=== PATIENT | female | born 1980 | race Caucasian/White ===

== ENCOUNTER → 2017-05-17 | Outpatient (CLI) | payer OTHER ==
[2017-05-17 17:35] LABS: LYMPH % 35.6 % (24.0-44.0); MEAN CORPUSCULAR HEMOGLOBIN 30.3 pg (27.0-33.0); MEAN CORPUSCULAR HGB CONC 33.2 g/dl (32.0-36.5); MEAN CORPUSCULAR VOLUME 91.2 fl (80.0-96.0); MONO % 7.3 % (0.0-5.0); PLATELET COUNT, AUTOMATED 257 10^3/uL (150-450); RED CELL DISTRIBUTION WIDTH 12.4 % (11.5-14.5); WHITE BLOOD COUNT 4.8 10^3/uL (4.0-10.0)
[2017-05-17 17:36] LABS: BASO % 0.4 % (0.0-1.0); EOS # 0.1 10^3/uL (0.0-0.50); EOS % 2.5 % (0.0-3.0); IMMATURE GRANULOCYTE % 0.2 % (0-0); LYMPH # 1.7 10^3/uL (1.5-4.5); MONO # 0.4 10^3/uL (0.0-0.8); NEUTROPHILS # 2.6 10^3/uL (1.8-7.7)
[2017-05-17 18:46] LABS: ALBUMIN 4.8 GM/DL (3.2-5.2); ALBUMIN/GLOBULIN RATIO 1.45 (1.00-1.93); ALKALINE PHOSPHATASE 59 U/L (45-117); ALT/SGPT 28 U/L (12-78); ANION GAP 12 MEQ/L (8-16); AST/SGOT 15 U/L (7-37); BILIRUBIN,TOTAL 0.5 MG/DL (0.2-1.0); BLOOD UREA NITROGEN 16 MG/DL (7-18); CALCIUM LEVEL 8.9 MG/DL (8.5-10.1); CARBON DIOXIDE LEVEL 22 MEQ/L (21-32); CHLORIDE LEVEL 106 MEQ/L (98-107); CREATININE FOR GFR 0.91 MG/DL (0.55-1.02); GLOMERULAR FILTRATION RATE > 60.0 (>60); GLUCOSE, FASTING 84 MG/DL (70-105); POTASSIUM SERUM 3.8 MEQ/L (3.5-5.1); SODIUM LEVEL 140 MEQ/L (136-145); TOTAL PROTEIN 8.1 GM/DL (6.4-8.2)
[2017-05-17 20:58] LABS: ERYTHROCYTE SEDIMENTATION RATE 4 mm/hr (0-20)
[2017-05-18 09:32] LABS: THYROID PEROXIDASE ANTIBODY < 28.0 U/ML (<60.0)
== END ==
LOC: M SMT 12:00
PROVIDERS: ATTEND Allergy & Immunology Allergy
DX: L50.1 Idiopathic urticaria (principal)

== ENCOUNTER 2019-05-22 06:00 | Day surgery (SDC) | payer BC ==
[~2019-05-22] VITALS: Ht 170.2 cm; Wt 78.4 kg
[~2019-05-22 06:00] MED LIST: LIDOCAINE 1% MDV 20ML VIAL SQ PRN; LR 1,000 ML IV ONE; MULTCAP PO; TOPI50TA9 PO; TRAZ-252 PO; VALA500T5 PO
[2019-05-22] MEDS ORDERED: SCOPOLAMINE 1MG TRANSDERMAL PATCH TOP ONE (07:15)
[2019-05-22] MEDS ORDERED: ACETAMINOPHEN 1000MG 100ML IV BTL (OFIRMEV) (J0131 PER 10MG) As Ordered ONE (07:55)
[2019-05-22] MEDS ORDERED: MIDAZOLAM INJ 2 MG/2 ML VIAL (J2250) As Ordered ONE (07:55)
[2019-05-22] MEDS ORDERED: KETOROLAC 60 MG/2 ML VIAL (J1885) As Ordered ONE (07:55)
[2019-05-22] MEDS ORDERED: PROPOFOL 200 MG/20 ML VIAL As Ordered ONE ×2 (07:55→07:56)
[2019-05-22] MEDS ORDERED: ONDANSETRON 4MG/2ML VIAL (J2405) As Ordered ONE (07:55)
[2019-05-22] MEDS ORDERED: METOCLOPRAMIDE INJ 10MG/2ML VIAL (J2765) As Ordered ONE (07:55)
[2019-05-22] MEDS ORDERED: ROCURONIUM BROMIDE 50 MG/5 ML VIAL As Ordered ONE (07:55)
[2019-05-22] MEDS ORDERED: LIDOCAINE 2% INJ 100 MG/5 ML SDV (FOR ANES.) As Ordered ONE (07:55)
[2019-05-22] MEDS ORDERED: SUGAMMADEX SODIUM 500 MG/5 ML VIAL (BRIDION) As Ordered ONE (07:55)
[2019-05-22] MEDS ORDERED: fentaNYL 100 MCG/2 ML INJECTION (J3010) As Ordered ONE ×2 (07:55→09:03)
[2019-05-22] MEDS ORDERED: dexameTHASONE 4 MG/ML 1ML VIAL (J1100) As Ordered ONE (07:55)
[2019-05-22] MEDS ORDERED: oxyCODONE 5MG TAB As Ordered ONE (09:03)
[2019-05-22] MEDS: fentaNYL 100 MCG/2 ML INJECTION (J3010) IV PRN ×2 (09:05→09:12)
[2019-05-22] MEDS: oxyCODONE 5MG TAB PO PRN ×2 (09:05→09:58)
[2019-05-22] MEDS ORDERED: LR 1,000 ML IV SCH ×2 (09:15→10:16)
[2019-05-22] MEDS ORDERED: MEPERIDINE INJ 25 MG/ML VIAL (J2175) IV PRN (09:15)
[2019-05-22] MEDS ORDERED: ONDANSETRON 4MG/2ML VIAL (J2405) IV PRN (09:15)
[2019-05-22] MEDS ORDERED: METOCLOPRAMIDE INJ 10MG/2ML VIAL (J2765) IV PRN (09:15)
[2019-05-22] MEDS ORDERED: NORCO, ANEXSIA 5/325MG TABLET (HYDROcodone/ACETAMINOPHEN) PO PRN (10:16)
[2019-05-22] MEDS ORDERED: IBUPROFEN 600 MG TAB PO PRN (10:16)
[2019-05-22 10:51] VITALS: BP 120/69
--- NOTE | 2019-05-26 10:41 | RO ---
DATE OF SURGERY: 05/22/2019 PREOPERATIVE DIAGNOSES AND INDICATION FOR SURGERY: Pain, bleeding, known fibroids, desire for permanent sterilization. POSTOPERATIVE DIAGNOSES: Pain, bleeding, known fibroids, desire for permanent sterilization. PROCEDURE: Laparoscopy with bilateral tubal ligation, fulguration, hysteroscopy with dilation and curettage (D and C) and ablation using the NovaSure. SURGEON: Swetha Fuller MD CELL TECHNICIAN: None. ANESTHESIA: General endotracheal anesthesia. BRIEF DESCRIPTION OF PROCEDURE AND FINDINGS: Julia was brought to the operating room, where sufficient general endotracheal anesthesia was induced. She was prepped and draped in position in the usual sterile fashion with a uterine manipulator placed. The uterus was sounded, and the length of the uterine cavity measured at 6 cm. We subsequently got a measurement of width of 4.6, but at this point we just had length, and we had the uterine manipulator placed and then turned our attention abdominally. A transverse semilunar incision was made below the umbilicus, avoiding the patient's tattoo. Sharp and blunt dissection were continued to the subcutaneous tissues to the level of the rectus fascia, which was grasped with Yina clamps, elevated to the wound, and transversely incised with the #15 blade scalpel. 0 Vicryl retention sutures were placed in the fascia. The peritoneum was entered bluntly under direct visualization in an open laparoscopic technique, and the Keith cannula then placed and secured in place with the 0 Vicryl retention sutures. CO2 insufflation was then begun. After adequate CO2 insufflation, the peritoneal cavity was visualized. There were shiny peritoneal surfaces throughout with no excrescences, ascites, nor exudate, and no significant adhesions. Trendelenburg was used to facilitate manipulation, as was the uterine manipulator. We were able to see normal ovaries and tubes and a uterus with a slightly distorted profile consistent with the patient's known history of fibroid. Then cauterized each tube in four separate locations using the bipolar cautery with the Kleppinger, and there was no evidence of injury to other organs or other abnormalities noted; and this portion of the procedure was ended with the CO2 allowed to escape the abdomen after, of course, photographs were taken to document this progress. After the CO2 had been allowed to escape the abdomen and the trocar at the umbilicus was removed, the 0 Vicryl retention sutures were used to close the fascia, and then the skin was closed in a subcuticular stitch with 3-0 Vicryl with good approximation and hemostasis achieved at both layers. Dry sterile dressing was then applied, and attention was then turned again to the pelvis. With the uterine manipulator removed, the hysteroscope was placed and the endometrial cavity visualized. This confirmed blood clots within the endometrial cavity consistent with the patient's history of menorrhagia, and there were no significant lesions, and the cavity itself was not that distorted by the patient's fibroids. Curettage was carried out with repeat sampling of the endometrium and thinning out some of those clots, and then the NovaSure ablative device was placed. Again, length was measured at 6, width at 4.6, and an uncomplicated NovaSure ablation was then carried out, and the patient was then ended. Estimated blood loss for the procedure was 5 mL or less. Fluid replacement was crystalloid. COMPLICATIONS: None. CONDITION AND DISPOSITION: Julia tolerated the procedure well and was recovering in the recovery room in good condition.
== END 2019-05-22 10:51 | disposition home or self-care (01) ==
LOC: M SDC 06:00
PROVIDERS: ATTEND Obstetrics & Gynecology
DX: Z30.2 Encounter for sterilization (principal); D25.9 Leiomyoma of uterus, unspecified; R10.2 Pelvic and perineal pain; N93.9 Abnormal uterine and vaginal bleeding, unspecified; R06.83 Snoring; L70.0 Acne vulgaris; Z88.8 Allergy status to other drugs, medicaments and biological substances; Z79.899 Other long term (current) drug therapy; Z86.19 Personal history of other infectious and parasitic diseases
CPT/HCPCS: 58563; 58670; 81025; 88305; J0131; J1100; J1885; J2250; J2405; J2765; J3010

== ENCOUNTER → 2019-08-01 | Outpatient (REF) | payer BC ==
[~2019-08-01] MED LIST changes: -LIDOCAINE 1% MDV 20ML VIAL SQ PRN; -LR 1,000 ML IV ONE
[2019-08-01 13:39] LABS: BASO % 0.4 % (0.0-1.0); EOS # 0.1 10^3/uL (0.0-0.5); EOS % 1.4 % (0.0-3.0); HEMATOCRIT 38.7 % (36.0-47.0); HEMOGLOBIN 12.9 g/dl (12.0-15.5); LYMPH # 1.7 10^3/uL (1.5-5.0); LYMPH % 29.9 % (24.0-44.0); MEAN CORPUSCULAR HEMOGLOBIN 31.2 pg (27.0-33.0); MEAN CORPUSCULAR HGB CONC 33.3 g/dl (32.0-36.5); MEAN CORPUSCULAR VOLUME 93.5 fl (80.0-96.0); MONO # 0.4 10^3/uL (0.0-0.8); NEUTROPHILS # 3.5 10^3/uL (1.5-8.5); NEUTROPHILS % 61.1 % (36.0-66.0); PLATELET COUNT, AUTOMATED 224 10^3/uL (150-450); RED BLOOD COUNT 4.14 10^6/uL (4.00-5.40); WHITE BLOOD COUNT 5.7 10^3/uL (4.0-10.0)
[2019-08-01 14:01] LABS: ERYTHROCYTE SEDIMENTATION RATE 7 mm/hr (0-20)
[2019-08-01 14:03] LABS: ALBUMIN 4.2 GM/DL (3.2-5.2); ALT/SGPT 28 U/L (12-78); BILIRUBIN,TOTAL 0.6 MG/DL (0.2-1.0); BLOOD UREA NITROGEN 13 MG/DL (7-18); C REACTIVE PROTEIN QUANTITATIV < 0.30 MG/DL (0.00-0.30); CALCIUM LEVEL 8.7 MG/DL (8.5-10.1); CARBON DIOXIDE LEVEL 27 MEQ/L (21-32); CHLORIDE LEVEL 105 MEQ/L (98-107); COMPLEMENT C3 84 MG/DL (90-180); COMPLEMENT C4 7 MG/DL (10-40); CREATININE FOR GFR 0.71 MG/DL (0.55-1.30); GLOMERULAR FILTRATION RATE > 60.0 (>60); GLUCOSE, FASTING 89 MG/DL (70-100); POTASSIUM SERUM 4.1 MEQ/L (3.5-5.1); SODIUM LEVEL 137 MEQ/L (136-145); TOTAL PROTEIN 6.9 GM/DL (6.4-8.2)
[2019-08-05 00:11] LABS: ANA (HEP2) Negative (.); HSV TYPE II IgG SPECIFIC <0.91 index (0.00-0.90); SMITHS ANTIBODY < 0.2 AI (0.0-0.9)
== END ==
LOC: M SFHCRHEU 10:01
PROVIDERS: ATTEND Internal Medicine
DX: R76.8 Other specified abnormal immunological findings in serum (principal); K12.0 Recurrent oral aphthae

== ENCOUNTER → 2019-10-28 | Outpatient (REF) | payer BC | LOC: M LAB REF 17:21 | PROVIDERS: ATTEND Dermatology | DX: R21 Rash and other nonspecific skin eruption (principal) ==

== ENCOUNTER 2025-04-06 09:52 | Day surgery (SDC) | payer OTHER ==
[~2025-04-06] VITALS: Ht 170.2 cm; Wt 86.6 kg
[~2025-04-06 09:52] MED LIST changes: +AZEL1SPR3 NARES; +CITA20TA7 PO; +DUPI300P SC; +FEXO-112 PO; +LIDOCAINE 2% 100 MG/5 ML SDV (FOR ANES.) As Ordered ONE; +LR 1,000 ML IV SCH; +MIDAZOLAM INJ 2 MG/2 ML VIAL As Ordered ONE; +MINO100C4 PO; +PROP20TA72 PO; +PROP60CA PO; +ROCURONIUM BROMIDE 50MG/5ML VIAL As Ordered ONE; +TOPI-21 PO; -TOPI50TA9 PO; +VALA-3 PO
[2025-04-06] MEDS: ceFAZolin SOD 2 GM IV ONCE IV ONE (11:19)
[2025-04-06] MEDS ORDERED: dexAMETHasone 4 MG/ML 1 ML VIAL As Ordered ONE (11:22)
[2025-04-06] MEDS ORDERED: dexmedeTOMIDine (4 MCG/ML) 200 MCG/50 ML BTL As Ordered ONE (11:23)
[2025-04-06 11:28] LABS: PLATELET COUNT, AUTOMATED 286 10^3/uL (150-450)
[2025-04-06] MEDS ORDERED: ACETAMINOPHEN 1000MG/100ML IV BAG As Ordered ONE (12:03)
[2025-04-06] MEDS ORDERED: HYDROmorphone HCL 2 MG/ML 1 ML VIAL As Ordered ONE (12:04)
[2025-04-06] MEDS ORDERED: ONDANSETRON 4MG/2ML VIAL As Ordered ONE (12:05)
[2025-04-06] MEDS ORDERED: SUGAMMADEX SODIUM 200 MG/2 ML VIAL As Ordered ONE (12:06)
[2025-04-06] MEDS ORDERED: KETOROLAC 30 MG/ML 1 ML VIAL As Ordered ONE (12:22)
[2025-04-06] MEDS ORDERED: ONDANSETRON 4MG/2ML VIAL IV PRN (13:25)
[2025-04-06] MEDS ORDERED: LR 1,000 ML IV SCH (13:25)
[2025-04-06] MEDS ORDERED: PERCOCET 5MG/325MG TAB PO PRN (13:45)
[2025-04-06] MEDS: HYDROMORPHONE HCL 0.5 MG/0.5 ML SYRINGE IV PRN (13:49)
[2025-04-06] MEDS ORDERED: COLA100C5 PO (14:07)
[2025-04-06] MEDS ORDERED: IBUP600T42 PO (14:07)
[2025-04-06] MEDS ORDERED: OXYC1TAB23 PO (14:07)
[2025-04-06 15:50] VITALS: BP 115/65; TEMP 97.3; O2SAT 100
== END 2025-04-06 16:17 | disposition home or self-care (01) ==
LOC: M SDC 09:52
PROVIDERS: ATTEND Specialist
DX: D25.9 Leiomyoma of uterus, unspecified (principal); N92.0 Excessive and frequent menstruation with regular cycle; Z98.51 Tubal ligation status; N39.3 Stress incontinence (female) (male); Z79.899 Other long term (current) drug therapy; Z88.8 Allergy status to other drugs, medicaments and biological substances
CPT/HCPCS: 36415; 58571; 85027; 86850; 86900; 86901; 88307; J0131; J0665; J0688; J1100; J1171; J1885; J2250; J2405; J2765; J3010; S2900